=== PATIENT | female | born 1990 | race Caucasian/White ===

== ENCOUNTER 2016-08-13 22:37 | Emergency (ER) | payer OTHER ==
[~2016-08-13] VITALS: Ht 152.4 cm; Wt 65.8 kg
[~2016-08-13 22:37] MED LIST: IBU600 MG PO; LO LOESTRIN FE1 TAB PO; NAPROXEN500 M1 PO; ORTHO TRI-CYCLE1 TA1 PO; PRILOSEC OTC20 MG PO
[2016-08-13 23:01] VITALS: BP 131/86
--- NOTE | 2016-08-14 00:44 | ED DYSPNEA/ASTHMA COMPLAINT ---
History of Present Illness General Chief Complaint: General Adult Stated Complaint: SORE THROAT Source: patient Exam Limitations: no limitations Vital Signs & Intake/Output Vital Signs & Intake/Output Vital Signs Date Time Temp Pulse Resp B/P B/P Pulse O2 O2 Flow FiO2 Mean Ox Delivery Rate 08/13 2301 98.3 71 18 131/86 97 Room Air ED Intake and Output 08/14 0000 08/13 1200 Intake Total Output Total Balance Patient 145 lb Weight Weight Reported by Patient Measurement Method Allergies Coded Allergies: adhesive (Severe, HIVES 08/14/16) latex (Severe, HIVES 08/14/16) acetaminophen (From VICODIN) (Severe, HALLUCINATIONS AND ITCHINESS 08/14/16) hydrocodone (From VICODIN) (Severe, HALLUCINATIONS AND ITCHINESS 08/14/16) lorazepam (From ATIVAN) (Intermediate, VOMITING 08/14/16) Reconcile Medications Albuterol Sulfate (Proventil Hfa) 90 MCG HFA.AER.AD 2 PUF INH Q4 COUGH Albuterol Sulfate (Proventil Hfa) 90 MCG HFA.AER.AD 2 PUF INH Q4 SOB Brompheniramine/Pseudoephed/Dm (Bromfed Dm Cough Syrup) 2 MG-30 MG-10 MG/5 ML SYRUP 5-10 ML PO Q4-6 PRN PRN cough Brompheniramine/Pseudoephed/Dm (Bromfed Dm Cough Syrup) 2 MG-30 MG-10 MG/5 ML SYRUP 5-10 ML PO Q4-6 PRN PRN cough Doxycycline Hyclate 100 MG TABLET 1 TAB PO BID bronchiis Doxycycline Hyclate 100 MG TABLET 1 TAB PO BID BRONCHITIS Ibuprofen (Ibu) 600 MG TAB 1 TAB PO TID PAIN NORGESTIMATE-ETHINYL ESTRADIOL (Ortho Tri-Cyclen 28 Tablet) 1 TAB TAB 1 TAB PO DAILY CONTROL (Reported) Omeprazole (Prilosec Otc) 20 MG TCP 1 TAB PO QDAY REFLUX Prednisone (Deltasone) 20 MG TABLET 1 TAB PO DAILY BRONCHITIS Prednisone (Deltasone) 20 MG TABLET 1 TAB PO DAILY COUGHQ Triage Note: PT TO TRIAGE WITH C/O CONGESTION, BODYACHES, SOB, COUGH, CHEST TIGHTNESS xWEEK. DENIES FEVER, AFEBRILE IN TRIAGE. VSS. Triage Nurses Notes Reviewed? yes Onset: Abrupt Duration: week(s): (1), constant, continues in ED Timing: recent history Severity: moderate, severe : No Patient currently breastfeeds: No HPI: 26-year-old female comes into emergency room with multiple complaints. Patient reports that she's been experiencing runny nose cough congestion and subjective fever chills body aches. Some mucus production. Started with a sore throat that has since resolved. She reports some pain in her chest when she coughs and some chest tightness and some shortness of breath. Some intermittent heart palpitations for the past week but feels it's related to her symptoms. She has a history of bronchitis and she reports it feels the same. Denies any other associated symptoms at this time. Patient is mainly here because his cough has been very persistent. (ALISSA WHATLEY) Past History Travel History Traveled to [place] past 21 day No Medical History Any Pertinent Medical History? see below for history Neurological: NONE EENT: NONE Cardiovascular: NONE Respiratory: bronchitis Gastrointestinal: NONE Hepatic: NONE Renal: NONE Musculoskeletal: disk herniation Psychiatric: NONE Endocrine: NONE Surgical History Surgical History: S1 CORTISONE INJECTION Psychosocial History What is your primary language Welsh Tobacco Use: Never used Family History Hx Contributory? No (ALISSA WHATLEY) Review of Systems Review of Systems Constitutional: Reports: see HPI. EENTM: Reports: see HPI. Respiratory: Reports: see HPI. Cardiovascular: Reports: no symptoms. GI: Reports: no symptoms. Genitourinary: Reports: no symptoms. Musculoskeletal: Reports: no symptoms. Skin: Reports: no symptoms. Neurological/Psychological: Reports: no symptoms. Hematologic/Endocrine: Reports: no symptoms. Immunologic/Allergic: Reports: no symptoms. All Other Systems: Reviewed and Negative (ALISSA WHATLEY) Physical Exam Physical Exam General Appearance: well developed/nourished, no apparent distress, alert, awake Head: atraumatic, normal appearance Eyes: Bilateral: normal appearance, EOMI. Ears, Nose, Throat: normal pharynx, normal ENT inspection, hearing grossly normal Neck: normal inspection, full range of motion Respiratory: normal breath sounds, no respiratory distress Cardiovascular: regular rate/rhythm Gastrointestinal: normal bowel sounds, soft Extremities: normal inspection, normal range of motion Neurologic/Psych: awake, alert, oriented x 3, normal gait Skin: intact, normal color Core Measures ACS in differential dx? No Severe Sepsis Present: No Septic Shock Present: No All Positive = PERC Ruled Out: Negative: age < 50 years, heart rate < 100 bpm, O2 sat > 94%, no hemoptysis, no hormone use, no prior DVT or PE, no unilateral leg swellin, no surgery/trauma w/ in 4w. Wells Criteria Score: 0 (ALISSA WHATLEY) Progress Differential Diagnosis: asthma, AMI, bronchitis, costochondritis, CHF, COPD, musculoskeletal pain, pericarditis, pulmonary embolism, pneumonia, pneumothorax, rib fracture, unstable angina Plan of Care: Orders Procedure Date/time Status EKG 08/14 42 Active Current Medications Sig/Connie Start time Last Medication Dose Stop Time Status Admin Guaifenesin/Codeine 10 ML ONCE ONE 08/14 44 CAN Phosphate 08/14 45 (Oskaritussin AC) Initial ED EKG: normal intervals, normal p-waves, normal sinus rhythm, rate (62) (ALISSA WHATLEY) Departure Departure Disposition: HOME OR SELF CARE Condition: Stable Clinical Impression Primary Impression: Bronchitis Referrals: SAM LOPEZ,CARLOS Ivan (PCP/Family) Additional Instructions: Please follow-up with your primary care doctor for further evaluation of other symptoms that you're experiencing. Please go over all results of today's visit with your primary care doctor. Contact your primary care doctor to let them know you were here in the emergency room. There may be nonspecific findings which may not be related to your visit today here in the emergency room but may require further evaluation and chronic monitoring by your primary care doctor. If you had a laceration today the chance of foreign body always remains. You should follow-up with your primary care doctor for recheck in 3-5 days for a wound check. If you had an x-ray done there is a chance that a fracture could have been missed on initial read and you should follow-up with your primary care doctor for repeat x-rays if symptoms persist. If your blood pressure was elevated here in the emergency room please have rechecked by her primary care doctor within the next 48 hours by your primary care doctor. If you were prescribed a narcotic here in the emergency room or any type of controlled substances you're not allowed to drive while taking this medication or operate any type of heavy machinery. Narcotics can make you feel lightheaded dizziness nausea and can cause constipation. You may need to lease picker a stool softener. Thank you for choosing [facility] emergency room. Please return to the emergency room immediately if you have any other concerns worsening of symptoms. Departure Forms: Customer Survey General Discharge Information Prescriptions: Current Visit Scripts Brompheniramine/Pseudoephed/Dm (Bromfed Dm Cough Syrup) 5-10 ML PO Q4-6 PRN PRN cough #120 ML Doxycycline Hyclate 1 TAB PO BID #20 TAB Prednisone (Deltasone) 1 TAB PO DAILY #5 MG Albuterol Sulfate (Proventil Hfa) 2 PUF INH Q4 #1 INHAL Brompheniramine/Pseudoephed/Dm (Bromfed Dm Cough Syrup) 5-10 ML PO Q4-6 PRN PRN cough #120 ML Prednisone (Deltasone) 1 TAB PO DAILY #5 MG Albuterol Sulfate (Proventil Hfa) 2 PUF INH Q4 #1 INHAL Doxycycline Hyclate 1 TAB PO BID #20 TAB Comments Patient does not want to do any type of workup tonight. I agree with the patient. She clinically looks well. Low suspicion for any type of cardiac event or pulmonary embolism. Low risk. She is resting comfortably in room in no apparent distress. Patient will need follow-up with her primary care doctors. Return if any other concerns. (ALISSA WHATLEY) PA/IT SOFTWARE ENGINEER Co-Sign Statement Statement: ED Attending supervision documentation- [] I saw and evaluated the patient. I have also reviewed all the pertinent lab results and diagnostic results. I agree with the findings and the plan of care as documented in the PA's/IT SOFTWARE ENGINEER's documentation. [x] I have reviewed the ED Record and agree with the PA's/IT SOFTWARE ENGINEER's documentation. [] Additions or exceptions (if any) to the PAs/IT SOFTWARE ENGINEER's note and plan are summarized below: [] (IRVING LOPEZ,GUADALUPE Hightower) Critical Care Note Critical Care Note Critical Care Time: non-applicable (ALISSA WHATLEY)
[2016-08-14] MEDS ORDERED: DOXYCYCLINE HY100 M4 PO ×2 (01:02→01:13)
[2016-08-14] MEDS ORDERED: BROMFED DM COU118 M1 PO ×2 (01:02→01:13)
[2016-08-14] MEDS ORDERED: PROVENTIL HFA6.7 GM INH ×2 (01:02→01:13)
[2016-08-14] MEDS ORDERED: DELTASONE20 MG PO ×2 (01:02→01:13)
== END 2016-08-14 01:26 ==
LOC: ERH 22:37
DX: J40 Bronchitis, not specified as acute or chronic (principal); R07.89 Other chest pain
CPT/HCPCS: 93005; 93010

== ENCOUNTER 2017-05-06 03:23 | Inpatient (IN) | payer OTHER ==
[~2017-05-06] VITALS: Ht 152.4 cm; Wt 77.1 kg
[~2017-05-06 03:23] MED LIST changes: +BROMFED DM COU118 M1 PO; +DELTASONE20 MG PO; +DOXYCYCLINE HY100 M4 PO; +PROVENTIL HFA6.7 GM INH; +TUMS200 MG PO; +VITAFOL PO
--- NOTE | 2017-05-06 09:10 | Operative Report ---
Operative/Inv Procedure Report Surgery Date: 05/06/17 Name of Procedure: cystsocopy: right stent insertion-no fluoroscopy Pre-Operative Diagnosis: severe right renal colic with hydro. Post-Operative Diagnosis: same Estimated Blood Loss: scant Surgeon/Music Minister: Blayne Suero MD Anesthesia: spinal Specimens: none Complications: none Operative/Procedure Note Note: The patient was taken to the operating room and placed on the OR table in supine position. Timeout was performed, with the patient awake, in order to confirm identity, procedure, antibiotics, anesthesia, and other pertinent barbara-operative information. After adequate anesthesia and antibiotics, the patient was placed in lithotomy stirrups draped and prepped in the usual surgical fashion. A 22 Argentine cystoscope sheath with 30 angle lens was inserted into the urethra without difficulty. Upon entering the bladder, the bladder was noted to be free of tumor, free of stone, with clear reflux from the left ureteral orifice, and no efflux from the right. A 0.035 Glidewire was then easily inserted into the right ureteral orifice, and advanced easily to the right renal pelvis. Over the Glidewire, a 6 x 22 silcone black ureteral stent was railroaded. With the proximal coil reaching the right renal pelvis, and the distal coil in the bladder, the Glidewire was removed. A large amount of clear urine was noted to drain through the stent. The stent remained in proper place cystoscopically. The bladder was then drained, and the cystoscope was removed. The patient tolerated procedure well and will follow-up as outpatient for further plan/procedures. She is to f/u in my office after delivery for stent removal. Discharge Disposition: PACU
[2017-05-08] MEDS ORDERED: TYLENOL WITH C1 EACH PO (07:27)
[2017-05-08] MEDS ORDERED: FAMOTIDINE20 M1 PO (07:27)
[2017-05-08] MEDS ORDERED: DOCUSATE SODIU100 M3 PO (07:27)
== END 2017-05-08 09:30 | DRG 694 ==
LOC: STS 03:23 → PACUH 13:58 → CANRESERV 16:07 → ENRESERV 16:07 → CANRESERV 16:16 → EDBEDREQ 17:40 → ENRESERV 17:49 → GNO 18:35 → ENRESERV 05-07 01:13 → CANRESERV 05-07 01:13 → GNO 05-07 07:32 → CMPBEDREQ 05-07 12:14 → GNO 05-07 13:54
PROC: 0T768DZ Dilation of Right Ureter with Intraluminal Device, Via Natural or Artificial Opening Endoscopic (ICD-10-PCS; principal; 2017-05-06)
DX: N23 Unspecified renal colic (principal); N13.39 Other hydronephrosis; O99.89 Other specified diseases and conditions complicating pregnancy, childbirth and the puerperium; Z3A.29 29 weeks gestation of pregnancy
CPT/HCPCS: J0131; J0690; J1200; J2250; J7042; J7120

== ENCOUNTER 2017-07-01 08:49 | Inpatient (IN) | payer OTHER ==
[~2017-07-01] VITALS: Ht 152.4 cm; Wt 81.6 kg
[~2017-07-01 08:49] MED LIST changes: +DOCUSATE SODIU100 M3 PO; +FAMOTIDINE20 M1 PO; +TYLENOL WITH C1 EACH PO
[2017-07-01 10:29] LABS: ABSOLUTE BASOPHIL COUNT 0 /CUMM (0.0-0.2); ABSOLUTE EOSINOPHIL COUNT 0.3 /CUMM (0.0-0.7); ABSOLUTE GRANULOCYTE CT 9.1 /CUMM (1.4-6.5); ABSOLUTE LYMPH COUNT 2.1 /CUMM (1.2-3.4); ABSOLUTE MONOCYTE COUNT 0.6 /CUMM (0.10-0.60); BASOPHIL % 0.3 % (0.0-2.0); EOSINOPHIL % 2.5 % (0-5); GRANULOCYTE % 74.6 % (42.2-75.2); HEMATOCRIT 31.7 % (37-47); MEAN CORPUSCULAR HGB 31.2 PG (27.0-31.0); MEAN CORPUSCULAR HGB CONC 34.3 G/DL (33.0-37.0); MEAN CORPUSCULAR VOLUME 91.2 FL (81.0-99.0); MEAN PLATELET VOLUME 9.5 FL (7.4-10.4); PLATELET COUNT 158 /CUMM (130-400); RBC DISTRIBUTION WIDTH 13.7 % (11.5-14.5); RED BLOOD CELL CT 3.48 /CUMM (4.20-5.40); WHITE BLOOD CELL COUNT 12.2 /CUMM (4.8-10.8)
--- NOTE | 2017-07-01 19:15 | History & Physical ---
General Information and HPI MD Statement: I have seen and personally examined KIT HAMMOND and documented this H&P. The patient is a 26 year old female at [37] weeks and [1] days gestation who presented with a chief complaint of [iol]. History of Present Illness: Is a 26-year-old 1 para 0 LMP 10/14/2016 EDC 07/21/2017 at 37 weeks and 1 day who presents to labor and delivery for a planned induction of labor secondary to hydronephrosis and right ureteral stent placement causing chronic pain. The patient understands that the risk of lung immaturity is outweighed by the potential benefit of the removal of stent after delivery. The patient's care is complete and remarkable for stent placement mid April by Dr. Suero and follow-up with him. She also has O- blood type and positive GBS colonization. She has experienced hieu hematuria since the stent placement by Dr. Suero. Allergies/Medications Allergies: Coded Allergies: adhesive (Severe, HIVES 08/14/16) latex (Severe, HIVES 08/14/16) hydrocodone (From VICODIN) (Severe, HALLUCINATIONS AND ITCHINESS 08/14/16) lorazepam (From ATIVAN) (Intermediate, VOMITING 08/14/16) Home Med list Calcium Carbonate (TUMS) 200 MG CALCIUM (500 MG) TAB.CHEW 1 TAB PO PRN HEARTBURN (Reported) Docusate Sodium 100 MG CAPSULE 100 MG PO DAILY NEEDED PRN CONSTIPATION Famotidine 20 MG TABLET 20 MG PO DAILY PRN DYSPEPSIA Fe Fumarate/Ac/E/FA/Multivit (Vitafol Caplet) 65 MG-125 MG-30 UNIT-1 MG TABLET 1 CAP PO DAILY (Reported) Tylenol With Codeine (Tylenol With Codeine #3 Tablet) 300 MG-30 MG TABLET 1 TAB PO Q4P PRN ABDOMINAL PAIN Past History liner replacer History : 1 Para: 0 Last Menstrual Period: 10/14/2016 Estimated Delivery Date: 07/21/2017 Past liner replacer History: nephrolithiasis Medical History Neurological: NONE EENT: NONE Cardiovascular: NONE Respiratory: bronchitis Gastrointestinal: NONE Hepatic: NONE Renal: NONE Musculoskeletal: disk herniation Psychiatric: NONE Endocrine: NONE Other Medical Hx: Nephrolithiasis Surgical History Pertinent Surgical History: S1 CORTISONE INJECTION Past Family/Social History Psychosocial History Smoking Status: Never Smoked Review of Systems Review of Systems Constitutional: Reports: no symptoms. EENTM: Reports: no symptoms. Cardiovascular: Reports: no symptoms. Respiratory: Reports: no symptoms. GI: Reports: no symptoms. Genitourinary: Reports: see HPI. Musculoskeletal: Reports: no symptoms. Skin: Reports: no symptoms. Neurological/Psychological: Reports: no symptoms. Hematologic/Endocrine: Reports: no symptoms. Immunologic/Allergic: Reports: no symptoms. All Other Systems: Reviewed and Negative Exam & Diagnostic Data Last 24 Hrs of Vital Signs/I&O Intake & Output 07/01 1600 07/01 0800 07/01 0000 Intake Total Output Total Balance Patient 180 lb Weight Obstetric Exam Wgt Gained During : 45 pounds Pelvimetry: Gynecoid Dilation (cm): 0 Effacement (%): 0 Station: -3 Membranes: intact Fluid: unknown Fundal Height (cm): 38 Multiple Gestation? No Contractions: None Infant #1 - FHR Baseline: 125 Category: 1 Estimated Weight: 6 pounds Presentation: Cephalic Patient for Induction? Yes Howe Score Howe Score Response Value Cervix Position: posterior 0 Cervix Consistency: soft 2 Cervix Effacement: 0-30% 0 Cervix Dilation: closed 0 Cervix Station: -3 0 Total 2 Physical Exam: HEENT: Normocephalic atraumatic Chest: Clear to auscultation bilaterally Cardiovascular: Normal S1, S2 Abdomen: Gravid, cephalic, estimated weight 6-6-1/2 pounds Pelvic: Long thick closed posterior soft Strategies: No clubbing cyanosis or edema Neurologic: Nonfocal Labs Blood Type & Rh: O- Antibody Screen: Negative Hct/Hgb & Platelets #1: 39, 13, 199 Hct/Hgb & Platelets #2: 32, 11, 172 Rubella: Immune VDRL #1: Nonreactive VDRL #2: Nonreactive HbsAg: Negative HIV #1: Negative HIV #2 Negative 1 Hr P Group B Strep: Positive Initial Ultrasound: Within normal limits Anatomy Ultrasound: Normal Ultrasound for EFW: 5-1/2 pounds Genetic Testing: Negative Last 24 Hrs of Labs/Cyrus: Laboratory Tests 07/01/17 0950: CBC w Diff NO MAN DIFF REQ, RBC 3.48 L, MCV 91.2, MCH 31.2 H, MCHC 34.3, RDW 13.7, MPV 9.5, Gran % 74.6, Lymphocytes % 17.3 L, Monocytes % 5.3, Eosinophils % 2.5, Basophils % 0.3, Absolute Granulocytes 9.1 H, Absolute Lymphocytes 2.1, Absolute Monocytes 0.6, Absolute Eosinophils 0.3, Absolute Basophils 0, Urinalysis LIGHT H, Urine Color PINK H, Urine Clarity HAZY H, Urine pH 6.0, Ur Specific [place] 1.025, Urine Protein 100 H, Urine Ketones NEG, Urine Nitrite NEG, Urine Bilirubin NEG, Urine Urobilinogen 0.2, Ur Leukocyte Esterase SMALL H, Ur Microscopic SEDIMENT EXAMINED, Urine RBC PACKD H, Urine WBC 10-15 H, Ur Epithelial Cells RARE, Urine Bacteria MOD H, Urine Mucus FEW, Urine Hemoglobin LARGE H, Urine Glucose 100 H Assessment/Plan Assessment/Plan: 37 week with flank pain secondary to stent placement for hydronephrosis Poor Howe score Plan: Cervical ripening with misoprostol followed by Pitocin induction As Ranked By This Provider Problem List: 1. Core Measures Venous Thromboembolism VTE Risk Factors / No Mechanical VTE Prophylaxis d/t LowRisk-No Interven Req'd No VTE Pharm Prophylaxis d/t LowRisk-No Interven Req'd
--- NOTE | 2017-07-01 19:16 | PN- Obstetrical ---
Subjective Subjective: Mild contraction pain Review of Systems: Negative Objective Last 24 Hrs of Vital Signs/I&O Intake & Output 07/01 1600 07/01 0800 07/01 0000 Intake Total Output Total Balance Patient 180 lb Weight Physical Exam: Cervix: Long thick closed posterior and soft Extremities: Nontender Obstetric Exam Dilation (cm): 0 Effacement (%): 0 Station: -3 Membranes: intact Fluid: unknown Multiple Gestation? No Contractions: Every 2-3 Infant #1 - FHR Baseline: 125 Category: 1 Estimated Weight: 6 pounds Presentation: Cephalic Current Medications: Current Medications Sig/Connie Start time Last Medication Dose Route Stop Time Status Admin Misoprostol 25 MCG Q4P PRN 07/01 0945 AC 07/01 VAG 1358 Last 24 Hrs of Labs/Cyrus: Laboratory Tests 07/01/17 0950: CBC w Diff NO MAN DIFF REQ, RBC 3.48 L, MCV 91.2, MCH 31.2 H, MCHC 34.3, RDW 13.7, MPV 9.5, Gran % 74.6, Lymphocytes % 17.3 L, Monocytes % 5.3, Eosinophils % 2.5, Basophils % 0.3, Absolute Granulocytes 9.1 H, Absolute Lymphocytes 2.1, Absolute Monocytes 0.6, Absolute Eosinophils 0.3, Absolute Basophils 0, Urinalysis LIGHT H, Urine Color PINK H, Urine Clarity HAZY H, Urine pH 6.0, Ur Specific [place] 1.025, Urine Protein 100 H, Urine Ketones NEG, Urine Nitrite NEG, Urine Bilirubin NEG, Urine Urobilinogen 0.2, Ur Leukocyte Esterase SMALL H, Ur Microscopic SEDIMENT EXAMINED, Urine RBC PACKD H, Urine WBC 10-15 H, Ur Epithelial Cells RARE, Urine Bacteria MOD H, Urine Mucus FEW, Urine Hemoglobin LARGE H, Urine Glucose 100 H Assessment/Plan Assessment/Plan 37 week induction for Howe score status post misoprostol 2 patient currently having contractions and unable to place a third misoprostol Plan: We'll rest overnight and start Pitocin induction in the morning Problem List: 1.
--- NOTE | 2017-07-02 18:47 | PN- Obstetrical ---
Subjective Subjective: SROM BLOODY Objective Last 24 Hrs of Vital Signs/I&O PER PAPER CHART Physical Exam: PE WELL BUILT WF INNAD ABD [id number] PELVIS UNTESTED Obstetric Exam Dilation (cm): 6 Effacement (%): 9 Station: 0 Membranes: SROM Fluid: heavy vaginal bleed Multiple Gestation? No Contractions: Q 3 MINUTES #1 - FHR Baseline: 125 Category: 1 Estimated Weight: 6 pounds Presentation: Cephalic Assessment/Plan Assessment/Plan ASSESS INDUTION WITH BALOON AND PITOCIN PLAN EPIDURAL OBSEVE FOR
--- NOTE | 2017-07-02 22:28 | PN- Obstetrical ---
Subjective Subjective: IM SHAKING Objective Last 24 Hrs of Vital Signs/I&O VSS 99.9 Physical Exam: PE THIN WFIN NAD ABD SOFT NT EFW 3700 Obstetric Exam Dilation (cm): 9 Effacement (%): 90 Station: 0 Membranes: SROM Fluid: clear Multiple Gestation? No Contractions: Q 4MIUTES Infant #1 - FHR Baseline: 125 Category: 1 Estimated Weight: 6 pounds Presentation: Cephalic Assessment/Plan Assessment/Plan ASSESS TERM PERGANCY PLAN OBSERVE FOR Problem List: 1. Attending MD Review Statement Attending Statement Attending MD Statement: examined this patient
--- NOTE | 2017-07-03 03:33 | Operative Report ---
Operative/Inv Procedure Report Surgery Date: 07/03/17 Name of Procedure: Primary low flap transverse section Pfannenstiel skin incision Pre-Operative Diagnosis: Term failed induction poor maternal effort tachycardia nonreassuring heart tracing Post-Operative Diagnosis: Same and contracted pelvis Estimated Blood Loss: 500 Surgeon/Reporting Manager: Leilani Cantrell MD and Miki Aceves MD Anesthesia: block Operative/Procedure Note Note: Procedure note patient was taken the operating room placed prone position after adequate skin testing for epidural narcotic. The abdomen was prepped and draped so fashion hip wedge was placed Venodyne's were placed timeout was performed the urine was noted to be bloody this is secondary to patient's stents. 2 fingerbreadths of symptoms pubis in midline skin was cut was carried down to rectus fascia with a knife second knife was used to rectus fascia. Rectus fascia was dissected bluntly as well as sharply off of the rectus sheath the abdomen was entered high into the abdomen the rectus muscle was dissected bluntly as well as sharply I at this point the low blade the Norris was placed lower and incision the peritoneum was dissected high into the abdomen a bladder blade was replaced in the lower uterine segment the uterus was nicked I with the Metzenbaums dissected bluntly uterus was actually nicked and the uterine uterus was entered with the back of the knife dissected sharply as well as bluntly either was delivered over the abdominal wall the cords were reducible the cord was doubly clamped and cut and infant was handed to the lumber loader was waiting delivering to aid in resuscitation placenta was delivered manually noted to be intact was wiped clean with 2 wet dry last insurance free of adherent membranes intravenous Pitocin and intramyometrial Pitocin and Methergine were used for hemostasis which was apparent the uterus was oversewn running locking suture of 0 was indicated running locked suture of 0 interrupted [id number] were used for hemostasis uses turned to abdominal cavity irrigated copious amounts warm saline 2 peritoneum was reapproximated 0 fascia was reapproximated to continue sutures #1 skin was reapproximated using hima after Bovie coagulation substance tissue sterile dressings were applied at the end of the case on the urine the tube had started to clear was less bloody on the patient was awakened from anesthesia and transferred recovery room awake alert with her Findings: Viable female infant cord around the neck times to cord around the body 1 three -vessel cord. Placenta by manual extraction intact normal tubes and ovaries bilaterally otherwise normal anatomy prominent and flat pelvis
--- NOTE | 2017-07-03 12:40 | RADIOLOGY REPORT ---
EXAMINATION: CR ABDOMEN/INTRAOPERATIVE FLUOROSCOPY CLINICAL INDICATION: Right ureteroscopy. COMPARISON: Renal ultrasound dated 06/10/2017. TECHNIQUE/FINDINGS: Fluoroscopic equipment was dedicated to the operating room for the performance of an intraoperative procedure. Several (22) spot films were acquired and are archived in PACS. Please refer to operative notes for procedural detail. FLUOROSCOPY TIME: 39 seconds. IMPRESSION: Administrative dictation for intraoperative fluoroscopy and image archiving in PACS. Please refer to operative notes for details.
[2017-07-04 07:53] LABS: ABSOLUTE BASOPHIL COUNT 0 /CUMM (0.0-0.2); ABSOLUTE EOSINOPHIL COUNT 0 /CUMM (0.0-0.7); ABSOLUTE GRANULOCYTE CT 8.6 /CUMM (1.4-6.5); ABSOLUTE LYMPH COUNT 3.3 /CUMM (1.2-3.4); ABSOLUTE MONOCYTE COUNT 0.7 /CUMM (0.10-0.60); BASOPHIL % 0.2 % (0.0-2.0); EOSINOPHIL % 0.3 % (0-5); GRANULOCYTE % 67.8 % (42.2-75.2); MEAN CORPUSCULAR HGB 30.9 PG (27.0-31.0); MEAN CORPUSCULAR HGB CONC 33.4 G/DL (33.0-37.0); MEAN CORPUSCULAR VOLUME 92.6 FL (81.0-99.0); MEAN PLATELET VOLUME 9.9 FL (7.4-10.4); PLATELET COUNT 117 /CUMM (130-400); RBC DISTRIBUTION WIDTH 14.1 % (11.5-14.5); RED BLOOD CELL CT 2.64 /CUMM (4.20-5.40); WHITE BLOOD CELL COUNT 12.7 /CUMM (4.8-10.8)
[2017-07-04 08:26] LABS: HEMATOCRIT 24.5 % (37-47)
--- NOTE | 2017-07-05 11:30 | PN- Post Delivery/GYN ---
Subjective Subjective: bottle feeding Review of Systems: flatus Objective Last 24 Hrs of Vital Signs/I&O vss afebrile Physical Exam: incision c/d/i ext nt Assessment/Plan Assessment/Plan s/p rc/s pod2 stable cpm
[2017-07-05] MEDS ORDERED: HYDROMORPHONE HC2 M1 PO (23:40)
[2017-07-05] MEDS ORDERED: IBUPROFEN800 M1 PO (23:40)
== END 2017-07-06 11:30 | DRG 765 ==
LOC: GNO 08:49 → ENTRNSPT 07-03 10:25 → EDTRNSPTSTS 07-03 10:27 → EDTRNSPT 07-03 10:27 → CMPTRNSPT 07-03 10:52 → GNO 07-04 12:35
PROVIDERS: Obstetrics & Gynecology; Specialist
PROC: 3E0P7VZ Introduction of Hormone into Female Reproductive, Via Natural or Artificial Opening (ICD-10-PCS; 2017-07-02)
PROC: 3E033VJ Introduction of Other Hormone into Peripheral Vein, Percutaneous Approach (ICD-10-PCS; 2017-07-02)
PROC: 10D00Z1 Extraction of Products of Conception, Low, Open Approach (ICD-10-PCS; principal; 2017-07-03)
PROC: BT1DZZZ Fluoroscopy of Right Kidney, Ureter and Bladder (ICD-10-PCS; 2017-07-03)
PROC: 0TP98DZ Removal of Intraluminal Device from Ureter, Via Natural or Artificial Opening Endoscopic (ICD-10-PCS; 2017-07-03)
DX: O99.89 Other specified diseases and conditions complicating pregnancy, childbirth and the puerperium (principal); N13.30 Unspecified hydronephrosis; O76 Abnormality in fetal heart rate and rhythm complicating labor and delivery; O65.1 Obstructed labor due to generally contracted pelvis; Z3A.37 37 weeks gestation of pregnancy; Z37.0 Single live birth; O61.0 Failed medical induction of labor; O69.81X0 Labor and delivery complicated by cord around neck, without compression, not applicable or unspecified; O69.82X0 Labor and delivery complicated by other cord entanglement, without compression, not applicable or unspecified; Z91.040 Latex allergy status; Z88.5 Allergy status to narcotic agent; Z88.8 Allergy status to other drugs, medicaments and biological substances; Z91.048 Other nonmedicinal substance allergy status
CPT/HCPCS: GNOP; GNOS; 74018; 81001; 86920; 86922; 87086; 88307; J0131; J0690; J1170; J1650; J1885; J2210; J2790; J7120